=== PATIENT | male | born 1985 | race Caucasian/White ===

== ENCOUNTER 2018-01-06 22:18 | Emergency (ER) | payer OTHER ==
[~2018-01-06] VITALS: Ht 172.7 cm; Wt 127.0 kg
[~2018-01-06 22:18] MED LIST: ACEASPCAF; ACEBUTCAFT PO; ALBU90OI INH; ALBU90OI61 INH; AMOCLA500 PO; AMOX500 PO; AMOX875 PO; AZIT250 PO; AZIT500 PO; Amoxicillin500 MG PO; Augmentin 875-1 EACH PO; Bactrim Ds Tab1 EACH PO; CODACE30 PO; CODGUAEL PO; CYCL10 PO; GUAI100SY PO; HYDACE10B PO; HYDACE5 PO; HYDACE5325 PO; IBUP800 PO; Ibuprofen Ib200 MG PO; LACT10SY PO; LAVAP4L PO; MECL12.5 PO; Mucinex1200 MG PO; NAPR500 PO; NAPR550 PO; Norco 5-325 Ta1 EACH PO; OXYACE5T PO; PENVK500 PO; PRED20 PO; PROM25 PO; PSEU120ER PO; Percocet 5-3251 EACH PO; Prednisone20 MG PO; RXCODACET; RXHYDACE PO; RXOXYACE PO; SULTRIDS PO; TYLENOL; Ultram50 MG PO; [UNRECOGNIZED DRUG - OTHER] PO; [UNRECOGNIZED DRUG - REMARK]
[2018-01-06] MEDS ORDERED: Zithromax Tri-500 MG PO (22:28)
[2018-01-06] MEDS ORDERED: GUAI600T33 PO (22:28)
[2018-01-06] MEDS ORDERED: CIPHYDOTSU TOP (22:31)
== END 2018-01-06 22:40 | disposition home or self-care (01) ==
LOC: ER 22:18
DX: H60.91 Unspecified otitis externa, right ear (principal)
CPT/HCPCS: 99282

== ENCOUNTER 2018-12-03 19:10 | Emergency (ER) | payer OTHER ==
[~2018-12-03] VITALS: Ht 172.7 cm; Wt 131.5 kg
[~2018-12-03 19:10] MED LIST changes: +CIPHYDOTSU TOP; +GUAI600T33 PO; +Zithromax Tri-500 MG PO
[2018-12-03 19:55] LABS: BASOPHILS ABSOLUTE AUTO 0.09 K/mm3 (0.00-0.23); BASOPHILS PERCENT AUTO 1 % (0-2); EOSINOPHILS ABSOLUTE AUTO 0.09 K/mm3 (0.00-0.68); EOSINOPHILS PERCENT AUTO 1 % (0-6); Hematocrit 43.8 % (37.0-53.0); Hemoglobin 14.8 g/dL (13.5-17.5); IMMATURE GRAN ABSOLUTE AUTO 0.02 K/mm3 (0.00-0.10); IMMATURE GRAN PERCENT AUTO 0 % (0-1); LYMPHOCYTES ABSOLUTE AUTO 0.83 K/mm3 (0.84-5.20); LYMPHOCYTES PERCENT AUTO 10 % (21-46); MONOCYTES ABSOLUTE AUTO 0.69 K/mm3 (0.16-1.47); MONOCYTES PERCENT AUTO 8 % (4-13); Mean Corpuscular HGB Conc 33.8 g/dL (31.5-36.5); Mean Corpuscular Volume 86 fL (80-100); Mean Platelet Volume 10.7 fL (9.1-12.4); NEUTROPHILS ABSOLUTE AUTO 6.73 K/mm3 (1.96-9.15); NEUTROPHILS PERCENT AUTO 80 % (41-73); Platelet Count 299 K/mm3 (150-400); RDW Coefficient Variation 12.6 % (11.7-14.2); Red Blood Cell Count 5.11 M/mm3 (4.30-5.90); White Blood Cell Count 8.45 K/mm3 (4.00-11.30)
[2018-12-03 20:11] LABS: Influenza A Positive (NEGATIVE); Influenza B Negative (NEGATIVE)
[2018-12-03 20:18] LABS: Alanine Aminotransfer (ALT/SGP 65 U/L (12-78); Albumin, Blood 4.1 g/dL (3.4-5.0); Alk Phos 67 U/L (50-136); Anion Gap 5 mmol/L (6-16); Aspartate Aminotrans (AST/SGOT 35 U/L (12-37); Bilirubin, Total 0.8 mg/dL (0.1-1.0); Blood Urea Nitrogen 11 mg/dL (8-24); Bun/Creatinine Ratio 10.4 (12.0-20.0); CO2, Blood 28 mmol/L (21-32); Calcium, Blood 8.7 mg/dL (8.5-10.1); Chloride, Blood 104 mmol/L (98-108); Creatinine, Blood 1.06 mg/dL (0.60-1.20); Glomerular Filtration Rate >60 (60-); Glucose, Blood 128 mg/dL (70-99); Potassium, Blood 3.8 mmol/L (3.5-5.5); Sodium, Blood 137 mmol/L (136-145); Total Protein, Blood 8.1 g/dL (6.4-8.2)
[2018-12-03 20:32] LABS: Source, Urine Clean Catch
[2018-12-03 20:39] LABS: Appearance, Urine Clear (Clear); Bilirubin, Urine Neg (Neg); Blood, Urine Neg (Neg); Color, Urine Yellow (P-Yellow); Glucose Qualitative, Urine Neg (Neg); Ketones, Urine Neg (Neg); Leukocyte Esterase, Urine Neg (Neg); Nitrite, Urine Neg (Neg); Protein, Urine Neg (Neg); Specific Gravity, Urine 1.015 (1.003-1.022); Urobilinogen, Urine 1+ (Normal)
[2018-12-03] MEDS ORDERED: ONDA4ODT MM (20:51)
== END 2018-12-03 22:50 | disposition home or self-care (01) ==
LOC: ER 19:10
PROVIDERS: Emergency Medicine; Physician Assistant
DX: J10.1 Influenza due to other identified influenza virus with other respiratory manifestations (principal); Z87.01 Personal history of pneumonia (recurrent); M54.9 Dorsalgia, unspecified; G89.29 Other chronic pain
CPT/HCPCS: 36415; 80053; 81003; 85025; 87081; 87430; 87804; 96361; 96374; 96375; 99283-25; J1200; J2405; J2550; J7030

== ENCOUNTER 2019-12-25 03:52 | Emergency (ER) | payer OTHER ==
[~2019-12-25] VITALS: Ht 172.7 cm; Wt 136.1 kg
[~2019-12-25 03:52] MED LIST changes: +ONDA4ODT MM
[2019-12-25 05:12] LABS: BASOPHILS ABSOLUTE AUTO 0.05 K/mm3 (0.00-0.23); BASOPHILS PERCENT AUTO 1 % (0-2); EOSINOPHILS ABSOLUTE AUTO 0.18 K/mm3 (0.00-0.68); EOSINOPHILS PERCENT AUTO 2 % (0-6); Hematocrit 46.1 % (37.0-53.0); Hemoglobin 15.6 g/dL (13.5-17.5); IMMATURE GRAN ABSOLUTE AUTO 0.01 K/mm3 (0.00-0.10); IMMATURE GRAN PERCENT AUTO 0 % (0-1); LYMPHOCYTES ABSOLUTE AUTO 0.94 K/mm3 (0.84-5.20); LYMPHOCYTES PERCENT AUTO 11 % (21-46); MONOCYTES PERCENT AUTO 7 % (4-13); Mean Corpuscular HGB 28.6 pg (26.0-34.0); Mean Corpuscular HGB Conc 33.8 g/dL (31.5-36.5); Mean Corpuscular Volume 85 fL (80-100); Mean Platelet Volume 10.4 fL (9.1-12.4); NEUTROPHILS ABSOLUTE AUTO 6.67 K/mm3 (1.96-9.15); NEUTROPHILS PERCENT AUTO 79 % (41-73); Platelet Count 278 K/mm3 (150-400); RDW Coefficient Variation 12.8 % (11.7-14.2); RDW Standard Deviation 39.1 fL (35.1-46.3); Red Blood Cell Count 5.45 M/mm3 (4.30-5.90); White Blood Cell Count 8.45 K/mm3 (4.00-11.30)
[2019-12-25 05:32] LABS: Alanine Aminotransfer (ALT/SGP 67 U/L (12-78); Albumin, Blood 3.9 g/dL (3.4-5.0); Alk Phos 65 U/L (50-136); Anion Gap 7 mmol/L (6-16); Aspartate Aminotrans (AST/SGOT 43 U/L (12-37); Bilirubin, Total 0.7 mg/dL (0.1-1.0); Blood Urea Nitrogen 12 mg/dL (8-24); CO2, Blood 24 mmol/L (21-32); Calcium, Blood 8.4 mg/dL (8.5-10.1); Chloride, Blood 107 mmol/L (98-108); Globulin, Blood 3.9 g/dL (2.2-4.0); Glomerular Filtration Rate >60 (60-); Glucose, Blood 132 mg/dL (70-99); Potassium, Blood 3.5 mmol/L (3.5-5.5); Sodium, Blood 138 mmol/L (136-145); Total Protein, Blood 7.8 g/dL (6.4-8.2)
[2019-12-25] MEDS ORDERED: Zofran4 MG PO (07:24)
[2019-12-25] MEDS ORDERED: Anti-Diarrheal2 MG PO (07:24)
[2019-12-25] MEDS ORDERED: ALBU90OI INH (07:24)
== END 2019-12-25 07:52 | disposition home or self-care (01) ==
LOC: ER 03:52
PROVIDERS: Emergency Medicine
DX: R19.7 Diarrhea, unspecified (principal); R05 Cough
CPT/HCPCS: 36415; 71045; 80053; 83690; 85025; J2405; J7030

== ENCOUNTER → 2019-12-26 | Outpatient (CLI) | payer OTHER ==
[~2019-12-26] MED LIST changes: +Anti-Diarrheal2 MG PO; +Zofran4 MG PO
== END ==
LOC: LAB EV 14:02 → LAB SHORT 14:02
DX: R22.40 Localized swelling, mass and lump, unspecified lower limb (principal)
CPT/HCPCS: 84550

== ENCOUNTER 2021-01-11 20:25 | Emergency (ER) | payer OTHER ==
[~2021-01-11] VITALS: Ht 172.7 cm; Wt 117.9 kg
[2021-01-12] MEDS ORDERED: FAMO20 PO (14:50)
[2021-01-12] MEDS ORDERED: ALBU90OI INH (14:50)
[2021-01-12] MEDS ORDERED: Aspir 8181 MG PO (14:50)
[2021-01-12] MEDS ORDERED: IBUP800 PO (14:51)
[2021-01-12] MEDS ORDERED: Prozac20 MG (14:51)
[2021-01-12] MEDS ORDERED: ZOLP10 PO (14:52)
[2021-01-12] MEDS ORDERED: Crestor20 MG PO (14:52)
[2021-01-12] MEDS ORDERED: METO25 PO (14:52)
== END 2021-01-11 23:41 | disposition home or self-care (01) ==
LOC: ER 20:25
DX: S93.401A Sprain of unspecified ligament of right ankle, initial encounter (principal); X58.XXXA Exposure to other specified factors, initial encounter
CPT/HCPCS: 73630; 99283-25; A9270

== ENCOUNTER 2021-01-13 07:29 | Day surgery (SDC) | payer OTHER ==
[~2021-01-13] VITALS: Ht 172.7 cm; Wt 127.0 kg
[~2021-01-13 07:29] MED LIST changes: +Aspir 8181 MG PO; +Crestor20 MG PO; +FAMO20 PO; +METO25 PO; +Prozac20 MG; +ZOLP10 PO
[2021-01-13] MEDS ORDERED: VITAMIN D31000 UNI1 PO (08:16)
--- NOTE | 2021-01-13 09:50 | NUR ---
PT TO RECOVERY ROOM POST PROCEDURE. PT AWAKE AND CONVERSING APPROPRIATELY, DENIES CHEST PAIN POST PROCEDURE. MONITOR SR 70'S, B/P 119/78, AFEBRILE, SPO2 95% RA. R RADIAL SITE NO SWELLING/HEMATOMA, TR BAND IN PLACE 11 CC AIR; RUE POSITIVE PLEUTH. PT TAKING BREAKFAST WITHOUT ISSUE.
--- NOTE | 2021-01-13 12:20 | NUR ---
PT AMB TO BATHROOM WITHOUT ISSUE, GAIT STEADY; SITE UNCHANGED WITH ACTIVITY. PT DRESSED SELF WITHOUT ISSUE. TR BAND REMOVED CLOTH DOT AND WRIST IMMOBILIZER PLACED; IV REMOVED-CANNULA INTACT. PT'S SITE REMAINED UNCHANGED.
--- NOTE | 2021-01-13 12:29 | NUR ---
PT RECEIVED DISCHARGE INSTRUCTIONS, MED LIST AND AFTER CARE INSTRUCTIONS; VERBALIZED GOOD UNDERSTNDING. PT LEFT FACILITY VIA W/C, CONDITION STABLE.
== END 2021-01-13 12:29 | disposition home or self-care (01) ==
LOC: MHTC 07:29
DX: I25.10 Atherosclerotic heart disease of native coronary artery without angina pectoris (principal); I10 Essential (primary) hypertension; E78.5 Hyperlipidemia, unspecified; E66.01 Morbid (severe) obesity due to excess calories; Z68.41 Body mass index [BMI] 40.0-44.9, adult; Z79.82 Long term (current) use of aspirin
CPT/HCPCS: 76937; 93454; 99152; 99153; C1769; C1894; J1644; J2250; J3010; J7030; J7050; Q9967

== ENCOUNTER → 2025-07-12 | Outpatient (CLI) | payer OTHER ==
[~2025-07-12] MED LIST changes: +VITAMIN D31000 UNI1 PO
[2025-07-12 17:33] LABS: BASOPHILS ABSOLUTE AUTO 0.09 K/mm3 (0.00-0.23); BASOPHILS PERCENT AUTO 1 % (0-2); EOSINOPHILS ABSOLUTE AUTO 0.40 K/mm3 (0.00-0.68); EOSINOPHILS PERCENT AUTO 5 % (0-6); Hematocrit 40.8 % (37.0-53.0); Hemoglobin 13.8 g/dL (13.5-17.5); IMMATURE GRAN ABSOLUTE AUTO 0.02 K/mm3 (0.00-0.10); IMMATURE GRAN PERCENT AUTO 0 % (0-1); LYMPHOCYTES ABSOLUTE AUTO 2.24 K/mm3 (0.84-5.20); LYMPHOCYTES PERCENT AUTO 29 % (21-46); MONOCYTES ABSOLUTE AUTO 0.49 K/mm3 (0.16-1.47); MONOCYTES PERCENT AUTO 6 % (4-13); Mean Corpuscular HGB Conc 33.8 g/dL (31.5-36.5); Mean Corpuscular Volume 86 fL (80-100); NEUTROPHILS ABSOLUTE AUTO 4.60 K/mm3 (1.96-9.15); NEUTROPHILS PERCENT AUTO 59 % (41-73); NRBC ABSOLUTE 0.00 K/mm3 (0.00-0.02); NRBC Auto 0.0 /100 WBC (0.0-0.2); Platelet Count 310 K/mm3 (150-400); RDW Coefficient Variation 13.0 % (11.7-14.2); RDW Standard Deviation 40.1 fL (35.1-46.3)
[2025-07-12 17:46] LABS: Alanine Aminotransfer (ALT/SGP 44.0 U/L (12-78); Albumin, Blood 4.1 g/dL (3.4-5.0); Albumin/Globulin Ratio 1.2 (0.8-1.8); Anion Gap 11.0 mmol/L (3-11); Aspartate Aminotrans (AST/SGOT 28.0 U/L (12-37); Bilirubin, Total 0.6 mg/dL (0.1-1.0); Blood Urea Nitrogen 7.0 mg/dL (8-24); CO2, Blood 29.0 mmol/L (21-32); Calcium, Blood 9.1 mg/dL (8.5-10.1); Chloride, Blood 106.0 mmol/L (98-108); Creatinine, Blood 1.04 mg/dL (0.60-1.20); Globulin, Blood 3.4 g/dL (2.2-4.0); Glucose, Blood 99.0 mg/dL (70-99); Potassium, Blood 3.9 mmol/L (3.5-5.5); Sodium, Blood 142.0 mmol/L (136-145); Total Protein, Blood 7.5 g/dL (6.4-8.2)
== END ==
LOC: LAB SHORT 17:28 → LAB 17:28
PROVIDERS: Physician Assistant
DX: R06.02 Shortness of breath (principal)
CPT/HCPCS: 80053; 83880; 84484; 85025; 85379